=== PATIENT | female | born 1960 | race Native Hawaiian/Other Pacific Islander ===

== ENCOUNTER 2022-01-31 17:24 | Emergency (ER) | payer OTHER ==
--- NOTE | 2022-01-31 21:27 | XRay Report ---
Chest single view INDICATION: Dyspnea chest pain and hemoptysis IMPRESSION: There is a small amount of airspace disease noted within the medial aspect of the right l nuno base. The left lung is clear. The heart size is normal. Signer Name: Alex Flynn MD Signed: 01/31/2022 9:23 PM Workstation Name: [email or web address]
[2022-01-31] MEDS ORDERED: ALUM-MAG HYDROXIDE-SIMETHICONE 200-200-20MG/5ML ORAL LIQD 30 ML PO ONE (22:14)
[2022-01-31] MEDS ORDERED: LIDOCAINE VISCOUS 2% 15 ML ORAL LIQD PO ONE (22:14)
--- NOTE | 2022-01-31 22:34 | Emergency Department Report ---
ED General Adult HPI - General Chief complaint: Upper Respiratory Infection Stated complaint: COUGHING BLOOD/SWOLLEN THROAT Time Seen by Provider: 01/31/22 20:48 Source: patient, family Mode of arrival: Ambulatory Limitations: Language Barrier - History of Present Illness Initial comments: 61-year-old female brought in by her family member for coughing up blood. She reports that while she was eating she all of a sudden "could not swallow she started vomiting while eating this occurred about 5 PM. After vomiting she began coughing and spit up blood. She only had one episode and has not had this occur again. She still describes burning in her throat. Patient denies this ever happening to her, she did not have any abdominal pain, no fever chills, she denies history of heart born or reflux disease, she denies history of aspiration, history of esophageal stricture. Patient has since been able to eat drink and tolerate intake since the incident occurred. She denies chest pain, no shortness of breath, no fever or chills, no back pain, no dysuria, no other associated symptoms. No recent travel or sick contacts -: Sudden Severity scale (0 -10): 3 Quality: burning Consistency: now resolved Improves with: none Worsens with: none Associated Symptoms: cough, nausea/vomiting. denies: confusion, chest pain, diaphoresis, fever/chills, loss of appetite, malaise, rash, seizure, shortness of breath, weakness Treatments Prior to Arrival: none - Related Data Previous Rx's Medication Instructions Recorded Last Taken Type Mag Hydrox/Aluminum Hyd/Simeth 10 ml PO TID PRN #1 bottle 01/31/22 Unknown Rx [Maalox Advanced Suspension] Omeprazole 40 mg PO QHS #30 01/31/22 Unknown Rx Allergies Allergy/AdvReac Type Severity Reaction Status Date / Time No Known Allergies Allergy Unverified 01/31/22 17:59 ED Review of Systems ROS: Stated complaint: COUGHING BLOOD/SWOLLEN THROAT Other details as noted in HPI Constitutional: denies: chills, diaphoresis, fever ENT: throat pain. denies: ear pain Respiratory: cough. denies: orthopnea, shortness of breath, wheezing Cardiovascular: denies: chest pain, palpitations, dyspnea on exertion, orthopnea, syncope Gastrointestinal: nausea, vomiting. denies: abdominal pain, diarrhea, constipation Genitourinary: denies: urgency, dysuria Skin: as per HPI. denies: lesions Neurological: denies: headache, weakness, numbness, paresthesias, confusion, abnormal gait Psychiatric: denies: anxiety, auditory hallucinations, visual hallucinations ED Past Medical Hx - Past Medical History Previous Medical History?: Yes Additional medical history: Vaginal delivery x 1, high cholesterol - Surgical History Past Surgical History?: Yes Additional Surgical History: x 1, Hysterectomy - Social History Smoking Status: Unknown if ever smoked - Medications Home Medications: Home Medications Medication Instructions Recorded Confirmed Last Taken Type Mag Hydrox/Aluminum Hyd/Simeth 10 ml PO TID PRN #1 bottle 01/31/22 Unknown Rx [Maalox Advanced Suspension] Omeprazole 40 mg PO QHS #30 01/31/22 Unknown Rx ED Physical Exam - General Limitations: Language Barrier General appearance: alert, in no apparent distress - Head Head exam: Present: atraumatic - Eye Eye exam: Present: normal appearance - ENT ENT exam: Present: normal exam, normal orophraynx, mucous membranes moist, other (Speech is clear swallowing without difficulty, no tonsillar or pharyngeal erythema or swelling, no airway obstruction for) - Neck Neck exam: Present: normal inspection, full ROM. Absent: tenderness, lymphadenopathy, thyromegaly - Respiratory Respiratory exam: Present: normal lung sounds bilaterally. Absent: respiratory distress, wheezes, decreased breath sounds - Cardiovascular Cardiovascular Exam: Present: regular rate - GI/Abdominal GI/Abdominal exam: Present: soft, normal bowel sounds. Absent: distended, tenderness - Extremities Exam Extremities exam: Present: normal inspection, full ROM - Back Exam Back exam: Present: normal inspection - Neurological Exam Neurological exam: Present: alert, oriented X3 - Psychiatric Psychiatric exam: Present: normal affect, normal mood - Skin Skin exam: Present: warm, dry, intact ED Course Vital Signs 01/31/22 01/31/22 17:59 20:52 Temperature 97.8 F Pulse Rate 69 Respiratory 20 Rate Blood Pressure 139/79 [Right] O2 Sat by Pulse 97 97 Oximetry ED Medical Decision Making - Radiology Data Radiology results: report reviewed Negative chest x-ray - Medical Decision Making 61-year-old female brought in by her family member for coughing up blood. She reports that while she was eating she all of a sudden "could not swallow she started vomiting while eating this occurred about 5 PM. After vomiting she began coughing and spit up blood. Patient report this has been going on for about a months where whenever she eats it feels like the food is in her throat. Makes her throat feel quite sore. she denies history of heart born or reflux disease, she denies history of aspiration, or history of esophageal stricture. Symptoms are sporadic, she did not have any abdominal pain, no fever chills nausea or vomiting, Patient has since been able to eat drink and tolerate intake since the incident occurred. She denies chest pain, no shortness of breath, no fever or chills, no back pain, no dysuria, no other associated symptoms. No recent travel or sick contacts. No signs of airway obstruction, no wheezing, no stridor, chest x-ray negative, patient denies foreign body sensation. 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 . Symptoms improved with a GI cocktail, patient has not had any vomiting or coughing episodes throughout her ED stay otherwise she is stable for discharge. Rx for GI cocktail, supportive therapy, dietary management including small slow feedings and follow-up. Discussed all of this with patient and family. Patient remained stable nontoxic-appearing, afebrile, ambulating steadily without assistance. Gone over ED findings with patient as well as plan for follow-up. Also discussed return precautions with patient, all questions and concerns addressed. Patient is stable to be discharged follow-up outpatient. Audio voice dictation device used, hence the chart might contain some dictation errors, mispronunciations, wrong spelling and wrong verbiage. Critical care attestation.: If time is entered above; I have spent that time in minutes in the direct care of this critically ill patient, excluding procedure time. ED Disposition Clinical Impression: Globus pharyngeus, Esophagitis Disposition: HOME / SELF CARE / HOMELESS Is pt being admited?: No Does the pt Need Aspirin: No Condition: Stable Instructions: Globus Pharyngeus, Esophagitis Prescriptions: Omeprazole 40 mg PO QHS #30 Mag Hydrox/Aluminum Hyd/Simeth [Maalox Advanced Suspension] 10 ml PO TID PRN #1 bottle PRN Reason: Sore Throat Referrals: CHRISTIANO CARIAS MD [Primary Care Provider] - 3-5 Days MORTEZA MCNAIR MD [Staff Physician] - 3-5 Days Print Language: NIGERIEN
[2022-01-31 23:03] VITALS: BP 136/71
== END 2022-01-31 23:25 | disposition home or self-care (01) ==
LOC: ED 17:24
DX: J02.9 Acute pharyngitis, unspecified (principal); F45.8 Other somatoform disorders; K20.90 Esophagitis, unspecified without bleeding
CPT/HCPCS: 71045; 99283